=== PATIENT | female | born 1985 | race Caucasian/White ===

== ENCOUNTER 2022-10-16 06:10 | Day surgery (SDC) | payer MEDICARE ==
[2022-10-14 09:28] LABS: BASOPHILS % (AUTO) 0.5 % (0.0-5.0); EOSINOPHILS % (AUTO) 1.9 % (0.0-8.0); HEMATOCRIT 43.7 % (36-48); LYMPHOCYTES % (AUTO) 33.2 % (21.0-51.0); MEAN CORPUSCULAR HEMOGLOBIN 26.5 pg (27.0-33.0); MEAN CORPUSCULAR HGB CONC 31.6 g/dL (32.0-36.0); MEAN CORPUSCULAR VOLUME 83.9 fL (79-99); MONOCYTES % (AUTO) 6.9 % (3.0-13.0); NEUTROPHILS % (AUTO) 57.2 % (40.0-77.0); PLATELET COUNT (AUTO) 310 K/uL (130-400); RED BLOOD CELL COUNT(AUTO) 5.21 MIL/uL (4.00-5.50); RED CELL DISTRIBUTION WIDTH 14.9 % (11.0-15.5); WHITE BLOOD COUNT (AUTO) 8.6 K/uL (4.8-10.8)
[2022-10-14 09:36] LABS: CREATININE 0.6 mg/dL (0.5-1.5); POTASSIUM 4.4 mmol/L (3.5-5.1)
[2022-10-14 09:46] VITALS: BP 116/67
[2022-10-14 09:49] LABS: INR 1.01 (0.85-1.15)
[2022-10-14 09:51] LABS: PARTIAL THROMBOPLASTIN TIME 28.5 SEC (26.3-35.5)
[2022-10-16] VITALS (19 sets, daily range): BP systolic 104–131; BP diastolic 52–85
[~2022-10-16] VITALS: Ht 160 cm; Wt 110.8 kg
[~2022-10-16 06:10] MED LIST: ALBUTEROL IH; CARV3.12 PO; LOSA25TA41 PO; PANTOPRAZOLE PO
[2022-10-16] MEDS ORDERED: 0.9%NACL 1000ML 1,000 ML IV ONE (06:53)
[2022-10-16] MEDS ORDERED: CEFAZOLIN SODIUM 1 GM VIAL ONE (06:53)
[2022-10-16] MEDS ORDERED: BUPIVACAINE/PF 0.25% 30ML VIAL IJ ONE (07:32)
[2022-10-16] MEDS ORDERED: MIDAZOLAM HCL 1 MG/ML 2ML VIAL ONE (07:37)
[2022-10-16] MEDS ORDERED: PROPOFOL 10 MG/ML 20ML VIAL IV ONE (07:37)
[2022-10-16] MEDS ORDERED: LIDOCAINE PF 100MG/5ML (2%) SYRINGE 5ML ONE (07:37)
[2022-10-16] MEDS ORDERED: FENTANYL CITRATE PF 50 MCG/1 ML 2ML VIAL ONE ×2 (07:38→08:22)
[2022-10-16] MEDS ORDERED: ROCURONIUM 10MG/1ML SYR 10 MG/ML ML ONE (07:38)
[2022-10-16] MEDS ORDERED: DEXAMETHASONE SOD PHOSPHATE 4 MG/ML 1ML VIAL ONE (07:58)
[2022-10-16] MEDS ORDERED: ONDANSETRON 4MG INJ ONE (07:59)
[2022-10-16] MEDS ORDERED: GLYCOPYRROLATE 1 MG/5 ML SYRINGE ONE (08:09)
[2022-10-16] MEDS ORDERED: KETOROLAC 30MG VIAL (30MG/ML) ONE (08:10)
[2022-10-16] MEDS ORDERED: NEOSTIGMINE 5MG/5ML SYR IV ONE (08:10)
[2022-10-16] MEDS ORDERED: PANT40TA54 PO (08:55)
[2022-10-16] MEDS ORDERED: CYCL5TAB PO (08:55)
[2022-10-16] MEDS ORDERED: SERT-440 PO (08:55)
[2022-10-16] MEDS ORDERED: MEPERIDINE-PF 25 MG/ML SYG ONE (09:16)
[2022-10-16] MEDS ORDERED: IBUP-2697 PO (10:46)
== END 2022-10-16 11:15 | disposition home or self-care (01) ==
LOC: DAH 06:10
PROVIDERS: ATTEND Surgery
DX: K43.2 Incisional hernia without obstruction or gangrene (principal); Z20.822 Contact with and (suspected) exposure to COVID-19; I10 Essential (primary) hypertension; K21.9 Gastro-esophageal reflux disease without esophagitis; J45.909 Unspecified asthma, uncomplicated; F41.9 Anxiety disorder, unspecified; F31.9 Bipolar disorder, unspecified; Z82.49 Family history of ischemic heart disease and other diseases of the circulatory system; Z83.3 Family history of diabetes mellitus; Z79.01 Long term (current) use of anticoagulants; Z98.890 Other specified postprocedural states; Z90.89 Acquired absence of other organs; Z79.899 Other long term (current) drug therapy; I49.3 Ventricular premature depolarization
CPT/HCPCS: 80048; 84703; 85025; 85610; 85730; 87426; 36415; 49593; 82948 ×2; 93005; 64486; A6260; J1100; A4663; A4452; A4649; C1781; J3010 ×2; J0690; J3490 ×2; J2710; J7030; J2001; J2250; J2704; J2405; J1885; J2175; A4930; A4215; A4223; A4222; A4221; A4600

== ENCOUNTER 2023-11-08 18:37 | Emergency (ER) | payer MEDICARE ==
[~2023-11-08] VITALS: Ht 160 cm; Wt 89.4 kg
[~2023-11-08 18:37] MED LIST changes: +CYCL5TAB PO; +IBUP-2697 PO; +PANT40TA54 PO; -PANTOPRAZOLE PO; +SERT-440 PO
[2023-11-08 20:26] LABS: BASOPHILS # (AUTO) 0.04 K/uL (0.00-0.20); BASOPHILS % (AUTO) 0.4 % (0.0-5.0); EOSINOPHILS # (AUTO) 0.17 K/uL (0.00-0.70); EOSINOPHILS % (AUTO) 1.9 % (0.0-8.0); HEMATOCRIT 34.7 % (36-48); IMMATURE GRANULOCYTE ABSOLUTE 0.03 K/uL (0-1); LYMPHOCYTES # (AUTO) 3.4 K/uL (1.0-4.8); LYMPHOCYTES % (AUTO) 38.2 % (21.0-51.0); MEAN CORPUSCULAR HEMOGLOBIN 26.6 pg (27.0-33.0); MEAN CORPUSCULAR HGB CONC 32.6 g/dL (32.0-36.0); MEAN CORPUSCULAR VOLUME 81.6 fL (79-99); MONOCYTES # (AUTO) 0.7 K/uL (0.1-1.0); MONOCYTES % (AUTO) 7.8 % (3.0-13.0); NEUTROPHILS # (AUTO) 4.6 K/uL (1.8-7.7); NEUTROPHILS % (AUTO) 51.4 % (40.0-77.0); PLATELET COUNT (AUTO) 292 K/uL (130-400); RED BLOOD CELL COUNT(AUTO) 4.25 MIL/uL (4.00-5.50); RED CELL DISTRIBUTION WIDTH 14.6 % (11.0-15.5)
[2023-11-08 20:36] LABS: CREATININE 0.7 mg/dL (0.5-1.0); POTASSIUM 3.8 mmol/L (3.5-5.1)
[2023-11-08 20:41] LABS: ALBUMIN 3.6 g/dL (3.5-5.0); BILIRUBIN,TOTAL 0.4 mg/dL (0.2-1.0); TOTAL PROTEIN, SERUM 7.3 g/dL (6.0-8.3)
[2023-11-08 22:05] VITALS: BP 118/77; PULSE 75; RESP 13; O2SAT 100
[2023-11-08] MEDS ORDERED: ACET-66 PO (23:19)
[2023-11-08] MEDS ORDERED: NAPROXEN 500 MG TABLET ONE (23:54)
[2023-11-08] MEDS: NAPROXEN 500 MG TABLET PO ONE (23:55)
== END 2023-11-09 00:01 | disposition home or self-care (01) ==
LOC: EDH 18:37
DX: R10.30 Lower abdominal pain, unspecified (principal); Z79.1 Long term (current) use of non-steroidal anti-inflammatories (NSAID); Z79.899 Other long term (current) drug therapy
CPT/HCPCS: 36415; 71045; 76882; 80053; 85025; 93005

== ENCOUNTER 2023-12-04 18:28 | Emergency (ER) | payer MEDICARE ==
[~2023-12-04] VITALS: Ht 160 cm; Wt 90.3 kg
[~2023-12-04 18:28] MED LIST changes: +ACET-66 PO
[2023-12-04] MEDS: KETOROLAC 60 MG VIAL (30MG/ML) IM ONE (20:27)
[2023-12-04 21:19] VITALS: BP 110/82; PULSE 78; RESP 20; O2SAT 99
== END 2023-12-04 22:16 | disposition home or self-care (01) ==
LOC: EDH 18:28
DX: M54.50 Low back pain, unspecified (principal); F41.9 Anxiety disorder, unspecified; F32.A Depression, unspecified; I25.10 Atherosclerotic heart disease of native coronary artery without angina pectoris; Z79.1 Long term (current) use of non-steroidal anti-inflammatories (NSAID); Z79.899 Other long term (current) drug therapy; Z95.810 Presence of automatic (implantable) cardiac defibrillator; Z98.1 Arthrodesis status
CPT/HCPCS: 99284; 81025; 72100; 96372; J1885